=== PATIENT | female | born 1955 | race American Indian/Alaskan Native ===

== ENCOUNTER 2018-07-03 18:18 | Emergency (ER) | payer OTHER ==
[2018-07-03 18:29] VITALS: BP 125/84
[2018-07-03] MEDS ORDERED: TORADOL IM ONE (19:27)
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
== END 2018-07-03 21:02 | disposition home or self-care (01) ==
LOC: ED 18:18
DX: S16.1XXA Strain of muscle, fascia and tendon at neck level, initial encounter (principal); S39.012A Strain of muscle, fascia and tendon of lower back, initial encounter; K21.9 Gastro-esophageal reflux disease without esophagitis; J45.909 Unspecified asthma, uncomplicated; Z98.51 Tubal ligation status; Z85.3 Personal history of malignant neoplasm of breast; V49.59XA Passenger injured in collision with other motor vehicles in traffic accident, initial encounter; Y93.89 Activity, other specified; Y92.89 Other specified places as the place of occurrence of the external cause; Y99.8 Other external cause status
CPT/HCPCS: 72100; 72125; 96372; 99284; J1885